=== PATIENT | male | born 1975 | race Caucasian/White ===

== ENCOUNTER 2018-12-05 13:59 | Emergency (ER) | payer SELFPAY ==
[~2018-12-05] VITALS: Ht 170 cm; Wt 100.0 kg
[2018-12-05] MEDS ORDERED: FLUO20CA42 PO (14:58)
[2018-12-05] MEDS ORDERED: CLIN300C11 PO (14:58)
--- NOTE | 2018-12-05 14:59 | ED Lower Extremity ---
General Chief Complaint: Lower Extremity Stated Complaint: R LEG PAIN Nursing Triage Note: PT AMBULATE TO TRIAGE WITHOUT DIFFICULTY. PT REPORTS HAS HAD A RASH AND PAIN AROUND KNEE AREA WITH BLISTERING. STATES HAS BEEN GOING ON FOR APPROX 10 DAY. Nursing Sepsis Screen: No Definite Risk Source: patient Exam Limitations: no limitations History of Present Illness Date Seen by Provider: Dec 05, 2018 Time Seen by Provider: 14:54 Initial Comments To ER with some sores to the right knee and lower leg. About 10 days ago he developed a rash to the lateral and posterior aspect of the right knee cutting some brush. It was very itchy, he tried a multitude of home remedies without im provement. Starting yesterday then he developed some pustules redness and warmth/firmness to the medial right lower leg. No fevers or chills. The rash to the posterior knee has completely resolved. Onset: just prior to arrival Severity: moderate Pain/Injury Location: right leg, right knee Method of Injury: fell Modifying Factors: Worse With Movement Allergies and Home Medications Patient Home Medication List Home Medication List Reviewed: Yes Review of Systems Constitutional: see HPI EENTM: see HPI Respiratory: no symptoms reported Cardiovascular: no symptoms reported Genitourinary: no symptoms reported Musculoskeletal: see HPI Skin: no symptoms reported Psychiatric/Neurological: No Symptoms Reported Past Zkizwrl-Zjblzr-Sratvb Hx Patient Social History Alcohol Use: Regular Use Alcohol Beverage of Choice: Beer Recreational Drug Use: No Smoking Status: Former Smoker Type Used: Cigars 2nd Hand Smoke Exposure: No Recent Foreign Travel: No Contact w/Someone Who Travel: No Recent Infectious Disease Expo: No Recent Hopitalizations: No Physical Abuse: No Sexual Abuse: No Mistreated: No Fear: No Seasonal Allergies Seasonal Allergies: No Past Medical History Surgeries: Yes (LAP BAND) Gallbladder Respiratory: No Cardiac: No Neurological: No Genitourinary: No Gastrointestinal: No Musculoskeletal: Yes Fractures Endocrine: No HEENT: No Hearing Impairment: Denies Cancer: No Psychosocial: Yes Anxiety, Depression Blood Disorders: No Physical Exam Vital Signs Vital Signs - First Documented 12/05/18 14:30 Temp 37.1 Pulse 103 Resp 17 B/P (MAP) 162/83 (109) Pulse Ox 99 Capillary Refill : Less Than 3 Seconds Height, Weight, BMI Height: '" Weight: lbs. oz. kg; 34.00 BMI Method: General Appearance: WD/WN, no apparent distress Respiratory: no respiratory distress, no accessory muscle use Hips: bilateral hip non-tender, bilateral hip normal inspection, bilateral hip normal range of motion Legs: right leg pain, right leg soft tissue tenderness, right leg swelling, right leg other (there is a grouping of 3 pustules with about a 3 cm area of induration to the medial aspect of the right calf and confined to the anterior medial aspect of the calf.) Knees: bilateral knee non-tender, bilateral knee normal inspection, bilateral knee normal range of motion Ankles: bilateral ankle non-tender, bilateral ankle normal inspection, bilateral ankle normal range of motion Neurologic/Psychiatric: alert, normal mood/affect, oriented x 3 Skin: normal color, warm/dry Progress/Results/Core Measures Results/Orders Vital Signs/I&O 12/05/18 14:30 Temp 37.1 Pulse 103 Resp 17 B/P (MAP) 162/83 (109) Pulse Ox 99 Blood Pressure Mean: 109 Departure Communication (Admissions) States that he is also about out of his Prozac, does not have a local health care provider to refill it. Impression Primary Impression: Cellulitis of right leg Disposition: HOME, SELF-CARE Condition: Stable (I advised that it) Departure-Patient Inst. Decision time for Depature: 14:57 Patient Instructions: Cellulitis (Skin Infection), Adult (DC) Add. Discharge Instructions: 1. Return to ER for any concerns or worsening symptoms such as fever or increasing redness or pain. 2. Follow-up with your doctor next week. All discharge instructions reviewed with patient and/or family. Voiced understanding. Scripts Clindamycin HCl (Clindamycin HCl) 300 Mg Capsule 300 MG PO TID, #21 CAP Prov: JACQUELINE LEMUS APRN 12/05/18 Fluoxetine HCl (Prozac) 20 Mg Capsule 20 MG PO DAILY, #30 CAP 2 Refills Prov: JACQUELINE LEMUS APRN 12/05/18 Images Extremities-Lower 1 - JACQUELINE LEMUS APRN Dec 05, 2018 14:59
[2018-12-05] MEDS ORDERED: cefTRIAXone 1,000 MG/2.86 ml vial (IM ONLY) IM SCH (15:15)
[2018-12-05] MEDS ORDERED: LIDOCAINE 1% INJ 20 ML 20 ML VIAL INJ ONE (15:15)
[2018-12-05] MEDS ORDERED: TRIM/SULFAMETH 160/800 (SEPTRA DS) TAB PO ONE (15:15)
[2018-12-05 15:25] VITALS: BP 132/80
== END 2018-12-05 15:25 | disposition home or self-care (01) ==
LOC: ER 14:00
DX: L03.115 Cellulitis of right lower limb (principal); F41.9 Anxiety disorder, unspecified; F32.9 Major depressive disorder, single episode, unspecified; Z87.891 Personal history of nicotine dependence
CPT/HCPCS: 99284

== ENCOUNTER 2020-01-12 06:18 | Emergency (ER) | payer BC ==
[~2020-01-12] VITALS: Ht 167.7 cm; Wt 115.6 kg
[~2020-01-12 06:18] MED LIST: CLIN300C11 PO; FLUO20CA42 PO
[2020-01-12] MEDS ORDERED: GLYCOPYRROLATE 0.2 MG/ML (ROBINUL) 2 ML VIAL IV ONE (07:00)
[2020-01-12] MEDS ORDERED: KETOROLAC 15 MG/ML VIAL IVP ONE (07:00)
[2020-01-12] MEDS ORDERED: NS IV 1000 ML 1,000 ML IV SCH (07:00)
--- NOTE | 2020-01-12 07:01 | ED Back Pain ---
General Chief Complaint: Back Problems Stated Complaint: BACK & RT SIDE PAIN Nursing Triage Note: TO ED VIA POV AND AMBULATORY TO ROOM 6 WITH C/O RIGHT FLANK/ABD PAIN THAT STARTED A COUPLE OF DAYS AGO WHIKE SITTING DOWN. DENIES INJURY. DENIES BURNING OR URGE WITH URINATION. Nursing Sepsis Screen: No Definite Risk Source of Information: Patient Exam Limitations: No Limitations History of Present Illness Date Seen by Provider: Jan 12, 2020 Time Seen by Provider: 06:44 Initial Comments Patient is a 44-year-old male who presents to the emergency room today with a chief complaint of right flank pain. Patient states onset of pain was 2 days ago. Patient states he has never had pain like this before. Patient was at rest when the symptoms started. Patient states that the pain seems to radiate a round into his right lower quadrant from his right back. Patient denies any problems with urination, dysuria urgency or frequency. His last bowel movement was yesterday and smaller than normal. Patient denies any fevers, chills, productive cough or URI symptoms. He states he is taken [id number] pain medications without any significant relief of his symptoms. Patient states he has never had a kidney stone in the past. Denies any pain in his groin/testicles. Patient has had a history of a "lap band surgery". Also previous cholecystectomy. All other review of systems reviewed negative except as stated. Timing/Duration: 2-3 Days Severity: Moderate Pain/Injury Location: Back (Right flank) Radiation: Other (Right lower quadrant) Allergies and Home Medications Allergies Coded Allergies: No Known Drug Allergies (Unverified , 12/05/18) Home Medications Clindamycin HCl 300 Mg Capsule, 300 MG PO TID Prescribed by: JACQUELINE LEMUS on 12/05/18 1458 Fluoxetine HCl 20 Mg Capsule, 20 MG PO DAILY Prescribed by: JACQUELINE LEMUS on 12/05/18 1458 Patient Home Medication List Home Medication List Reviewed: Yes Review of Systems Constitutional: no symptoms reported EENTM: see HPI Respiratory: no symptoms reported Gastrointestinal: RLQ Genitourinary: no symptoms reported; No decreased output, No dysuria, No frequency, No hematuria, No hesitancy, No incontinence Musculoskeletal: back pain Skin: no symptoms reported All Other Systems Reviewed Negative Unless Noted: Yes Past Jihceoq-Nlwgkn-Zisbko Hx Patient Social History Alcohol Use: Regular Use Number of Drinks Today: AA Alcohol Beverage of Choice: Beer Recreational Drug Use: No Type Used: Cigars 2nd Hand Smoke Exposure: No Recent Foreign Travel: No Contact w/Someone Who Travel: No Recent Infectious Disease Expo: No Recent Hopitalizations: No Physical Abuse: No Sexual Abuse: No Mistreated: No Fear: No Seasonal Allergies Seasonal Allergies: No Past Medical History Surgeries: Yes (LAP BAND) Gallbladder, Tonsillectomy Respiratory: No Cardiac: No Neurological: No Genitourinary: No Gastrointestinal: No Musculoskeletal: Yes Fractures Endocrine: No HEENT: No Hearing Impairment: Denies Cancer: No Psychosocial: Yes Anxiety, Depression Integumentary: No Blood Disorders: No Physical Exam Vital Signs Vital Signs - First Documented 01/12/20 06:28 Temp 36.1 Pulse 67 Resp 16 B/P (MAP) 175/91 (119) O2 Delivery Room Air Capillary Refill : Less Than 3 Seconds Height, Weight, BMI Height: '" Weight: lbs. oz. kg; 41.00 BMI Method: General Appearance: Mild Distress (Secondary to flank pain) HEENT: PERRL/EOMI Neck: Full Range of Motion Cardiovascular: Regular Rate, Rhythm, No Murmur Respiratory: Lungs Clear, Normal Breath Sounds, No Accessory Muscle Use, No Respiratory Distress Gastrointestinal: Normal Bowel Sounds, Soft, Tenderness (Mild tenderness to palpation of the right lower quadrant/right flank. No peritoneal findings of heeltap, Rovsing's, rebound or guarding) Back: Normal Inspection, CVA Tenderness (R) Neurologic/Psychiatric: Alert, Oriented x3, No Motor/Sensory Deficits, Normal Mood/Affect Skin: Normal Color, Warm/Dry Progress/Results/Core Measures Results/Orders Lab Results Laboratory Tests Test 01/12/20 06:28 01/12/20 06:58 Range/Units Urine Color YELLOW Urine Clarity CLEAR Urine pH 5.5 5-9 Urine Specific [place] 1.025 H 1.016-1.022 Urine Protein NEGATIVE NEGATIVE Urine Glucose (UA) NEGATIVE NEGATIVE Urine Ketones NEGATIVE NEGATIVE Urine Nitrite NEGATIVE NEGATIVE Urine Bilirubin NEGATIVE NEGATIVE Urine Urobilinogen 0.2 < = 1.0 MG/DL Urine Leukocyte Esterase NEGATIVE NEGATIVE Urine RBC (Auto) NEGATIVE NEGATIVE Urine RBC NONE /HPF Urine WBC RARE /HPF Urine Crystals NONE /LPF Urine Bacteria NEGATIVE /HPF Urine Casts NONE /LPF Urine Mucus SMALL H /LPF Urine Culture Indicated NO Sodium Level 139 135-145 MMOL/L Potassium Level 4.7 3.6-5.0 MMOL/L Chloride Level 106 98-107 MMOL/L Carbon Dioxide Level 24 21-32 MMOL/L Anion Gap 9 5-14 MMOL/L Blood Urea Nitrogen 12 7-18 MG/DL Creatinine 0.75 0.60-1.30 MG/DL Estimat Glomerular Filtration Rate > 60 BUN/Creatinine Ratio 16 Glucose Level 99 70-105 MG/DL Calcium Level 9.2 8.5-10.1 MG/DL My Orders Orders - RANGEL COTO MD Urinalysis (01/12/20 06:49) Ed Iv/Invasive Line Start (01/12/20 06:49) Basic Metabolic Panel (01/12/20 06:49) Abdomen/Kub 1view (01/12/20 06:49) Ct Abdomen/Pelvis Wo (01/12/20 06:49) Ketorolac Injection (Toradol Injection) (01/12/20 07:00) Ns Iv 1000 Ml (Sodium Chloride 0.9%) (01/12/20 07:00) Glycopyrrolate Injection (Robinul Inject (01/12/20 07:00) Ketorolac Injection (Toradol Injection) (01/12/20 07:15) Medications Given in ED Current Medications Medications Dose Ordered Sig/Ciro Route Start Time Stop Time Status Last Admin Dose Admin Glycopyrrolate 0.2 mg ONCE ONCE IV 01/12/20 07:00 01/12/20 07:01 DC 01/12/20 07:29 0.2 MG Ketorolac Tromethamine 15 mg ONCE ONCE IVP 01/12/20 07:15 01/12/20 07:17 DC 01/12/20 07:11 15 MG Vital Signs/I&O 01/12/20 06:28 Temp 36.1 Pulse 67 Resp 16 B/P (MAP) 175/91 (119) O2 Delivery Room Air Blood Pressure Mean: 119 Progress Progress Note : Time: 08:05 Progress Note 44-year-old with a chief complaint of right flank pain. Evaluation today includes a physical exam, basic laboratory studies to include a urinalysis and a BM 7. Patient underwent CT scanning of the abdomen and pelvis without contrast to evaluate for right kidney stone as well as a KUB. Patient was treated in the emergency department with 15 mg of IV Toradol and 0.2 mg of Robinul along with a liter of fluids. Patient achieved significant relief with his pain medications, on reevaluation his pain is "a 2". He still has a little bit of discomfort residually. KUB was remarkable for a lucency in the mid point of the left kidney and CT scan confirmed this 0.4 cm intraparenchymal on the left. No o bvious stone was seen on the right or along the course of the right ureter. My suspicion is that he potentially passed the stone prior to scanning. The patient does not have any bony/musculoskeletal tenderness I do not suspect this to be mechanical. I suspect that he did indeed passed a right-sided kidney stone. I have given the patient return precautions for which he verbalizes understanding. All questions are sought and answered and he is stable for discharge. Diagnostic Imaging Diagonstic Imaging: CT Plain Films/CT/US/NM/MRI: abdomen Comments [facility], [place] NAME: FIDEL GUIDRY [facility] REC#: [id number] PT STATUS: REG ER : 1975 PHYSICIAN: RANGEL COTO MD ADMIT DATE: 01/12/20/ER Draft Date of Exam:01/12/20 CT ABDOMEN/PELVIS WO PROCEDURE: CT abdomen and pelvis without contrast. TECHNIQUE: Multiple contiguous axial images were obtained through the abdomen and pelvis without the use of intravenous contrast. Auto Exposure Controls were utilized during the CT exam to meet ALARA standards for radiation dose reduction. INDICATION: Back and right flank pain Unenhanced images of the liver and spleen reveal no focal abnormalities. The gallbladder is surgically absent. There is a lap band in place at the level of the gastroesophageal junction. No pancreatic or adrenal gland abnormality is identified. There is approximately 0.4 cm nonobstructing calculus in the central left kidney. No right renal stone is identified and there is no evidence of ureteric calculus. No bladder stone is appreciated. There is no evidence of free fluid within the abdomen or pelvis. No organized fluid collection is detected. IMPRESSION: 0.4 cm nonobstructing left renal calculus without other evidence of acute abnormality within the abdomen or pelvis. Dictated on workstation # [id number] Dict: 01/12/2037 Trans: 01/12/20739 [facility] [id number] Interpreted by: SENG PAUL MD Electronically signed by: [facility] [place], [place] NAME: FIDEL GUIDRY [facility] REC#: [id number] PT STATUS: REG ER : 1975 PHYSICIAN: RANGEL COTO MD ADMIT DATE: 01/12/20/ER Draft Date of Exam:01/12/20 ABDOMEN/KUB 1VIEW INDICATION: Right flank pain Single view of the abdomen reveals lap-band device in the left upper quadrant of the abdomen. There is an approximately 0.4 cm left renal stone. Overall bowel gas pattern is unremarkable. There is no transition point to indicate an obstruction. IMPRESSION: 0.4 cm left renal stone without other evidence of acute abnormality in the abdomen or pelvis. Dictated on workstation # [id number] Dict: 01/12/20739 Trans: 01/12/2043 [facility] [id number] Interpreted by: SENG PAUL MD Electronically signed by: Departure Impression Primary Impression: Right flank pain Additional Impression: Renal stones Disposition: 01 HOME, SELF-CARE Condition: Stable Departure-Patient Inst. Decision time for Depature: 08:08 Referrals: NO,LOCAL PHYSICIAN (PCP/Family) Primary Care Physician Patient Instructions: Kidney Stones (DC), Acute Pain, Adult Add. Discharge Instructions: Drink lots of fluids to stay well-hydrated. You can take sjaw-yzq-[id number] Aleve or ibuprofen as directed on the bottle for pain. If you have pain that is not alleviated by tyze-jyz-fjktjxd medications, if you develop a fever or if you develop any other new or concerning symptoms please come back to the emergency room for reevaluation. All discharge instructions reviewed with patient and/or family. Voiced understanding. RANGEL COTO MD Jan 12, 2020 07:01
--- NOTE | 2020-01-12 07:08 | NUR ---
REPORT FROM ROSALINO LUKE
[2020-01-12 07:12] LABS: BILIRUBIN,URINE NEGATIVE (NEGATIVE); CLARITY,URINE CLEAR; COLOR,URINE YELLOW; GLUCOSE, URINE (UA) NEGATIVE (NEGATIVE); KETONES,URINE NEGATIVE (NEGATIVE); LEUKOCYTE ESTERASE ,URINE NEGATIVE (NEGATIVE); NITRITE,URINE NEGATIVE (NEGATIVE); PH,URINE 5.5 (5-9); PROTEIN,URINE NEGATIVE (NEGATIVE)
[2020-01-12] MEDS ORDERED: KETOROLAC 30 MG/ML VIAL IVP ONE (07:15)
[2020-01-12 07:19] LABS: BACTERIA,URINE NEGATIVE /HPF; WBC,URINE RARE /HPF
[2020-01-12 07:20] LABS: CHLORIDE 106 MMOL/L (98-107); POTASSIUM 4.7 MMOL/L (3.6-5.0); SODIUM 139 MMOL/L (135-145)
[2020-01-12 07:21] LABS: CALCIUM 9.2 MG/DL (8.5-10.1); GLUCOSE 99 MG/DL (70-105)
[2020-01-12 07:23] LABS: CARBON DIOXIDE 24 MMOL/L (21-32)
[2020-01-12 07:25] LABS: CREATININE SERUM 0.75 MG/DL (0.60-1.30); GFR ESTIMATED > 60
[2020-01-12 07:26] LABS: BUN/CREATININE RATIO 16
--- NOTE | 2020-01-12 07:40 | Diagnostic Imaging Report ---
PROCEDURE: CT abdomen and pelvis without contrast. TECHNIQUE: Multiple contiguous axial images were obtained through the abdomen and pelvis without the use of intravenous contrast. Auto Exposure Controls were utilized during the CT exam to meet ALARA standards for radiation dose reduction. INDICATION: Back and right flank pain Unenhanced images of the liver and spleen reveal no focal abnormalities. The gallbladder is surgically absent. There is a lap band in place at the level of the gastroesophageal junction. No pancreatic or adrenal gland abnormality is identified. There is approximately 0.4 cm nonobstructing calculus in the central left kidney. No right renal stone is identified and there is no evidence of ureteric calculus. No bladder stone is appreciated. There is no evidence of free fluid within the abdomen or pelvis. No organized fluid collection is detected. IMPRESSION: 0.4 cm nonobstructing left renal calculus without other evidence of acute abnormality within the abdomen or pelvis. Dictated by: Dictated on workstation # [id number]
--- NOTE | 2020-01-12 07:43 | Diagnostic Imaging Report ---
INDICATION: Right flank pain Single view of the abdomen reveals lap-band device in the left upper quadrant of the abdomen. There is an approximately 0.4 cm left renal stone. Overall bowel gas pattern is unremarkable. There is no transition point to indicate an obstruction. IMPRESSION: 0.4 cm left renal stone without other evidence of acute abnormality in the abdomen or pelvis. Dictated by: Dictated on workstation # [id number]
[2020-01-12 08:20] VITALS: BP 135/89
== END 2020-01-12 08:20 | disposition home or self-care (01) ==
LOC: EDUNIT# 06:18 → ER 06:21
DX: N20.0 Calculus of kidney (principal); F32.9 Major depressive disorder, single episode, unspecified
CPT/HCPCS: 36415; 74018; 74176; 80048; 81000